=== PATIENT | female | born 1995 | race Two or more races ===

== ENCOUNTER 2022-09-04 13:10 | Inpatient (IN) | payer OTHER ==
[~2022-09-04] VITALS: Ht 162.6 cm; Wt 62.4 kg
[2022-09-04] MEDS ORDERED: LORazepam 2 MG TABLET PO ONE (16:00)
[2022-09-04] MEDS ORDERED: TraMADol HCL 50 MG TABLET PO ONE (16:00)
[2022-09-04 16:11] LABS: BASOPHILS % (AUTO) 0.3 % (0.0-2.0); EOSINOPHILS % (AUTO) 0.1 % (1.0-6.0); HEMATOCRIT 41.6 % (36-46); HEMOGLOBIN 13.9 g/dL (12.0-16.0); LYMPHOCYTES # (AUTO) 1.7 K/uL (1.0-4.8); LYMPHOCYTES % (AUTO) 16.6 % (22.0-44.0); MEAN CORPUSCULAR HEMOGLOBIN 31.7 pg (26.0-34.0); MEAN CORPUSCULAR HGB CONC 33.3 G/dL (31.0-37.0); MEAN CORPUSCULAR VOLUME 95 fL (80-100); MONOCYTES # (AUTO) 0.6 K/uL (0.1-1.0); MONOCYTES % (AUTO) 5.3 % (2.0-9.0); NEUTROPHILS % (AUTO) 77.7 % (40.0-70.0); PLATELET COUNT (AUTO) 242 K/uL (150-450); RED BLOOD CELL COUNT(AUTO) 4.38 MIL/uL (4.00-5.20); RED CELL DISTRIBUTION WIDTH 12.8 % (11.5-14.5)
[2022-09-04 16:19] LABS: ANION GAP 12 mmol/L (8-16); CALCIUM, TOTAL 9.2 mg/dL (8.8-10.5); CARBON DIOXIDE 24 mmol/L (22-29); CHLORIDE 103 mmol/L (98-107); CREATININE 0.61 mg/dL (0.60-1.30); GLOMERULAR FILTR. RATE CALC > 60 mL/min (>60); GLUCOSE,RANDOM 94 mg/dL (70-110); POTASSIUM 3.9 mmol/L (3.5-5.1); SODIUM SERUM 139 mmol/L (136-145)
[2022-09-04 16:26] LABS: ALANINE AMINOTRANSFERASE 11 U/L (12-78); ALBUMIN 4.1 g/dL (3.4-5.0); ALKALINE PHOSPHATASE 69 U/L (46-116); ASPARTATE AMINOTRANSFERASE 13 U/L (15-37); BILIRUBIN,TOTAL 0.7 mg/dL (0.1-1.0); TOTAL PROTEIN, SERUM 8.1 g/dL (6.4-8.2)
[2022-09-04] MEDS ORDERED: QUEtiapine FUMARATE 100 MG TABLET PO PRN (17:00)
[2022-09-04] MEDS ORDERED: LORazepam 2 MG TABLET PO PRN (17:00)
[2022-09-04] MEDS ORDERED: ZOLPIDEM TARTRATE 10 MG TABLET PO PRN (17:00)
[2022-09-04 17:09] LABS: AMPHET/METH SCREEN,URINE NEGATIVE (NEGATIVE); BARBITURATE SCREEN, URINE NEGATIVE (NEGATIVE); BENZODIAZEPINES SCREEN,URINE NEGATIVE (NEGATIVE); CANNABINOID SCREEN,URINE NEGATIVE (NEGATIVE); COCAINE SCREEN,URINE NEGATIVE (NEGATIVE); METHADONE SCREEN, URINE NEGATIVE (NEGATIVE); OPIATE SCREEN,URINE NEGATIVE (NEGATIVE); PHENCYCLIDINE SCREEN,URINE NEGATIVE (NEGATIVE)
[2022-09-04 17:14] LABS: APPEARANCE,URINE CLEAR (CLEAR); BILIRUBIN,URINE NEGATIVE (NEGATIVE); GLUCOSE, URINE (UA) NEGATIVE (NEGATIVE); KETONES,URINE 40-60 mg/dL (NEGATIVE); LEUKOCYTE ESTERASE ,URINE SMALL (NEGATIVE); NITRATE,URINE NEGATIVE (NEGATIVE); OCCULT BLOOD,URINE NEGATIVE (NEGATIVE); PH,URINE 6.5 (5.0-8.0); PROTEIN,URINE TRACE mg/dL (NEGATIVE); SPECIFIC GRAVITIY, URINE 1.025 (1.003-1.030); UROBILINOGEN,URINE <=1.0 mg/dL (<=1.0)
[2022-09-04 17:50] LABS: RBC,URINE None Seen /HPF (0-2)
[2022-09-04 17:52] LABS: BACTERIA,URINE Few /HPF (None Seen); SQUAMOUS EPITHELIAL CELL,UR Few /LPF (None Seen)
[2022-09-04 17:56] LABS: COVID AG,FIA SOURCE NASAL SWAB
[2022-09-04 20:30] VITALS: BP 108/73
[2022-09-04] MEDS ORDERED: IBUPROFEN 400 MG TABLET PO PRN (20:45)
[2022-09-04] MEDS ORDERED: ONDANSETRON HCL 4 MG TABLET PO PRN (20:45)
[2022-09-04] MEDS ORDERED: ACETAMINOPHEN 325 MG TABLET PO PRN (20:45)
[2022-09-04] MEDS ORDERED: LOPERAMIDE HCL 2 MG CAPSULE PO PRN (20:45)
[2022-09-04] MEDS ORDERED: MAGNESIUM HYDROXIDE SUSPENSION 30 ML UDCUP PO PRN (20:45)
[2022-09-04] MEDS ORDERED: PETROLATUM,WHITE 28 GM JELLY TP PRN (20:45)
[2022-09-04] MEDS ORDERED: GuaiFENesin/D-METHORPHAN [SUGAR-FREE] 200-20MG/10 ML SYRUP UDCUP PO PRN (20:45)
[2022-09-04] MEDS ORDERED: DOCUSATE SODIUM 100 MG CAPSULE PO PRN (20:45)
[2022-09-04] MEDS ORDERED: ALBUTEROL SULFATE HFA 90 MCG/PUFF 8 GM INHALER IH PRN (20:45)
[2022-09-04] MEDS ORDERED: NICOTINE 14 MG/24 HOUR PATCH TD PRN (20:45)
[2022-09-04] MEDS ORDERED: CloNIDine HCL 0.1 MG TABLET PO PRN (20:45)
[2022-09-05 09:10] VITALS: BP 106/80
[2022-09-05 09:44] VITALS: BP 106/80
[2022-09-05 10:44] VITALS: BP 112/78
[2022-09-05] MEDS: SERTRALINE HCL 50 MG TABLET PO SCH (13:17)
[2022-09-05 15:52] VITALS: BP 111/76
[2022-09-05 16:52] VITALS: BP 117/79
[2022-09-06] MEDS: SERTRALINE HCL 50 MG TABLET PO SCH (08:10)
[2022-09-06 08:44] VITALS: BP 112/77
[2022-09-06] MEDS ORDERED: SERT-158 PO (15:01)
[2022-09-06] MEDS ORDERED: SERT-439 PO (17:28)
== END 2022-09-06 17:48 | disposition home or self-care (01) | DRG 159 ==
LOC: EMS 13:10 → EDBD 13:10 → 3EI 18:00
PROVIDERS: ADMIT Psychiatry & Neurology Child & Adolescent Psychiatry; ATTEND Psychiatry & Neurology Child & Adolescent Psychiatry
DX: S01.511A Laceration without foreign body of lip, initial encounter (principal); Z20.822 Contact with and (suspected) exposure to COVID-19; G47.00 Insomnia, unspecified; K59.00 Constipation, unspecified; S09.93XA Unspecified injury of face, initial encounter; Y04.0XXA Assault by unarmed brawl or fight, initial encounter; Z91.010 Allergy to peanuts; Z79.899 Other long term (current) drug therapy; Z90.49 Acquired absence of other specified parts of digestive tract; Y92.89 Other specified places as the place of occurrence of the external cause; Y08.89XA Assault by other specified means, initial encounter; Y93.89 Activity, other specified; Y99.8 Other external cause status
CPT/HCPCS: 70450; 70486; 80053; 80307; 81001; 84703; 85025; 87086; 87186; 99285; G0480